=== PATIENT | male | born 1970 | race Caucasian/White ===

== ENCOUNTER 2021-05-21 19:10 | Emergency (ER) | payer OTHER ==
[2021-05-21 19:20] VITALS: BP 142/90; PULSE 81; TEMP 99; BMI 23.5
[2021-05-21] MEDS ORDERED: LIDOCAINE 2%/EPINEPHRINE 1:100000 (50 ML MD VIAL) INF ONE (19:45)
[2021-05-21] MEDS ORDERED: CEPHALEXIN MONOHYDRATE 500 MG CAPSULE (UD) PO ONE (19:46)
[2021-05-21] MEDS ORDERED: DIPHTH,PERTUSS(ACELL),TET 0.5 ML DISP.SYRIN IM ONE ×2 (19:47→19:58)
[2021-05-21] MEDS ORDERED: LIDOCAINE HCL/EPINEPHRINE/PF 20 ML VIAL ONE (19:50)
[2021-05-21] MEDS ORDERED: CEPHALEXIN MONOHYDRATE 500 MG CAPSULE (UD) ONE (19:58)
== END 2021-05-21 21:20 | disposition home or self-care (01) ==
LOC: FER 19:10
PROC: 0HQNXZZ Repair Left Foot Skin, External Approach (ICD-10-PCS; principal; 2021-05-21)
PROC: 3E0234Z Introduction of Serum, Toxoid and Vaccine into Muscle, Percutaneous Approach (ICD-10-PCS; 2021-05-21)
DX: S91.312A Laceration without foreign body, left foot, initial encounter (principal); W25.XXXA Contact with sharp glass, initial encounter
CPT/HCPCS: 73630-TC-LT; 90715; 99284-25

== ENCOUNTER 2024-12-14 13:47 | Emergency (ER) | payer OTHER ==
[2024-12-14] MEDS ORDERED: IBUPROFEN 600 MG TABLET (FP) PO ONE (14:36)
[2024-12-14] MEDS: IBUPROFEN 600 MG TABLET (FP) PO ONE (14:37)
[2024-12-14 14:56] VITALS: BP 128/92; PULSE 88; RESP 18; TEMP 99; BMI 24.1
== END 2024-12-14 16:00 | disposition home or self-care (01) ==
LOC: FER 13:47
DX: S69.92XA Unspecified injury of left wrist, hand and finger(s), initial encounter (principal); X50.0XXA Overexertion from strenuous movement or load, initial encounter
CPT/HCPCS: 73130-TC-LT-FY; 99283-25